=== PATIENT | male | born 1945 | race Caucasian/White ===

== ENCOUNTER → 2016-08-06 | Outpatient (CLI) | payer MEDICARE ==
[2016-08-06 08:28] LABS: Blood Urea Nitrogen 10 mg/dL (9-20); Non-African American GFR(MDRD) >60 (>60 ml/min/1.73 sqM)
--- NOTE | 2016-08-06 12:40 | CT ---
EXAMINATION TYPE: CT abdomen pelvis w con DATE OF EXAM: 08/06/2016 9:09 AM COMPARISON: NONE HISTORY: 71-year-old male Constipation TECHNIQUE: Contiguous axial scanning of the abdomen and pelvis following administration of 100 ml Omn ipaque 300 IV contrast. Delayed images through the kidneys and coronal/sagittal reconstructions perf ormed. CT DLP: 750.50 mGycm Automated exposure control for dose reduction was used. FINDINGS: Heart is normal size without pericardial effusion. There are emphysematous changes seen in the visual ized lower lungs without pleural effusion. No focal liver lesion or biliary ductal dilatation. Portal venous system is patent. Gallbladder, kidneys, spleen, and pancreas appear within normal limits. There is mild diffuse thicken ing of the adrenal glands without discrete nodularity. No dilated small bowel, free fluid, or free air. No mesenteric or retroperitoneal lymphadenopathy. There is moderate to large stool burden with oral contrast progressed to the mid transverse colon. Sh ort segment focal thickening in the ascending colon coronal image 51 and sagittal image 23 may relate to poor distention. No pericolonic inflammatory change. Moderate circumferential bladder wall thickening. Prostate gland is enlarged measuring 5.6 cm wide. N o abnormal fluid collection in the pelvis or pelvic lymphadenopathy seen. Moderate atherosclerotic changes in the abdominal aorta and iliac arteries with mild fusiform dilatat ion of the infrarenal abdominal aorta at 2.9 cm but no significant ectasia or aneurysm. Bones: Mild degenerative changes at the hips. Additional degenerative changes lower lumbar spine. No osseous destructive process. IMPRESSION: 1. MODERATE TO LARGE STOOL BURDEN COULD REFLECT CONSTIPATION. 2. SOME SHORT SEGMENT FOCAL THICKENING WITHIN THE ASCENDING COLON COULD RELATE TO POOR DISTENTION OR MILD COLITIS. 3. CIRCUMFERENTIAL BLADDER WALL THICKENING; CORRELATE FOR VERSUS CHRONIC BLADDER WALL HYPERTROPHY. 4. PROSTATOMEGALY (5.6 CM WIDE). 5. EMPHYSEMA.
== END | disposition home or self-care (01) ==
LOC: RADCTMAIN 07:27
PROVIDERS: ATTEND Family Medicine
DX: K59.00 Constipation, unspecified (principal); K63.89 Other specified diseases of intestine; N32.89 Other specified disorders of bladder; N40.0 Benign prostatic hyperplasia without lower urinary tract symptoms
CPT/HCPCS: 82565; 84520; 74177; 36415; Q9967

== ENCOUNTER → 2017-07-23 | Outpatient (CLI) | payer MEDICARE ==
[2017-07-23 10:45] LABS: Blood Urea Nitrogen 17 mg/dL (9-20)
--- NOTE | 2017-07-23 13:35 | CT ---
EXAMINATION TYPE: CT abdomen pelvis w con DATE OF EXAM: 07/23/2017 COMPARISON: 08/06/2016 HISTORY: Patient complains of ruq pain and bloating. CT DLP: 1010.7 mGycm Automated exposure control for dose reduction was used. TECHNIQUE: Helical acquisition of images was performed from the lung bases through the pelvis. CONTRAST: Performed with Oral Contrast and with IV Contrast, patient injected with 100 mL of Omnipaque 300. FINDINGS: LUNG BASES: Moderate paraseptal emphysematous changes are again seen in the lung bases in combination with bibasilar subsegmental atelectasis. LIVER/GB: Hepatic parenchyma enhances homogeneously without focal lesion or biliary ductal dilatation . Gallbladder is unremarkable without cholelithiasis. PANCREAS: Pancreas is unremarkable without ductal dilatation. SPLEEN: No splenomegaly. ADRENALS: There are similar bilateral thickening of the adrenal glands without measurable nodule. KIDNEYS: Nonspecific bilateral perinephric fat stranding is unchanged from the prior. Kidneys enhance and excrete symmetrically without evidence of hydronephrosis. No gross evidence of nephrolithiasis. FREE AIR: No free air is visualized. ADENOPATHY: No greater than 1 cm short axis lymph nodes are seen within the abdomen or pelvis. REPRODUCTIVE ORGANS: The prostate gland is again enlarged measuring up to 5.6 cm and is diffusely het erogenous. URINARY BLADDER: The previously seen diffusely thickened urinary bladder wall is less pronounced geovanni n on the prior exam but remains and is likely due to incomplete distention or chronic hypertrophy. Ce ntral posterior urinary bladder diverticulum is also incidentally noted. Urinary bladder is incomplet arnaud distended. OSSEOUS STRUCTURES: Osseous structures are intact with minimal degenerative changes of the visualize d thoracolumbar spine. BOWEL: As seen on the prior examination there are multiple areas of circumferential mucosal thickeni ng such as on series 3 image 48, however on coronal images these appear to relate to a thickened haus tra. No evidence of bowel obstruction is identified. IMPRESSION: 1. NO ACUTE INTRA-ABDOMINAL PATHOLOGY. 2. MULTIPLE AREAS OF CIRCUMFERENTIAL MUCOSAL THICKENING WITHIN THE ASCENDING COLON AND HEPATIC FLEXUR E REDEMONSTRATED IN COMPARISON TO THE PRIOR EXAM. ON CORONAL IMAGING THESE DO APPEAR TO RELATE TO THI CKENED HAUSTRA AND MAY BE PHYSIOLOGIC RELATED TO INCOMPLETE DISTENTION. HOWEVER, COLONOSCOPY IS RECOM MENDED IF NOT RECENTLY PERFORMED GIVEN THE PERSISTENCE IN COMPARISON TO THE EXAM OF 08/06/2016. 3. CIRCUMFERENTIAL URINARY BLADDER WALL THICKENING SEEN ON THE PRIOR EXAM IS LESS CONSPICUOUS THAN ON THE PRIOR AND IS LIKELY RELATED TO INCOMPLETE DISTENTION VERSUS CHRONIC URINARY BLADDER WALL HYPERTR OPHY. 4. GIVEN THE PATIENT'S SYMPTOMS ALTHOUGH THE GALLBLADDER APPEARS UNREMARKABLE HIDA SCAN WITH CCK COUL D BE PERFORMED TO EVALUATE FOR BILIARY DYSKINESIA OR CHRONIC CHOLECYSTITIS. 5. REDEMONSTRATION OF PROSTATIC GLAND ENLARGEMENT AND HETEROGENEITY. 6. PARTIAL VISUALIZATION OF MODERATE BASILAR PARASEPTAL EMPHYSEMATOUS CHANGE.
== END | disposition home or self-care (01) ==
LOC: RADCTMAIN 10:03
PROVIDERS: ATTEND Family Medicine
DX: N32.89 Other specified disorders of bladder (principal); N40.0 Benign prostatic hyperplasia without lower urinary tract symptoms
CPT/HCPCS: 82565; 84520; 74177; 36415; Q9967

== ENCOUNTER → 2018-06-16 | Outpatient (CLI) | payer MEDICARE ==
--- NOTE | 2018-06-16 13:33 | XR ---
EXAM TYPE: LUMBAR SPINE X RAY SERIES COMPARISON: NONE HISTORY: Lower back pain TECHNIQUE: 4 views are submitted. FINDINGS: Alignment is anatomic. The pedicles are intact. The transverse processes are intact. There is no s pondylolysis or spondylolisthesis. Diffuse osteopenia. Vascular calcifications noted. There is a sli ght anterolisthesis of L4 on L5 with multilevel facet arthropathy and degenerative changes. Hypertrop hic spurring noted anteriorly. IMPRESSION: 1. Multilevel degenerative disc disease and facet arthropathy with grade 1 anterolisthesis L4 on L5.
== END | disposition home or self-care (01) ==
LOC: RADXRYALE 11:43
PROVIDERS: ATTEND Physician Assistant Medical
DX: M43.16 Spondylolisthesis, lumbar region (principal); M51.36 Other intervertebral disc degeneration, lumbar region; M46.96 Unspecified inflammatory spondylopathy, lumbar region
CPT/HCPCS: 72110